=== PATIENT | male | born 1985 | race Caucasian/White ===

== ENCOUNTER 2016-07-26 10:15 | Emergency (ER) | payer OTHER | END 2016-07-26 12:25 | disposition home or self-care (01) | LOC: ER 10:15 | DX: I88.0 Nonspecific mesenteric lymphadenitis (principal); F17.200 Nicotine dependence, unspecified, uncomplicated | CPT/HCPCS: 36415; 96361; 96374; 96375; J1885 ==

== ENCOUNTER 2016-09-30 14:11 | Emergency (ER) | payer OTHER | END 2016-09-30 16:30 | disposition home or self-care (01) | LOC: ER 14:11 | DX: S61.232A Puncture wound without foreign body of right middle finger without damage to nail, initial encounter (principal); Z23 Encounter for immunization; W46.0XXA Contact with hypodermic needle, initial encounter | CPT/HCPCS: 90471; 90744; 96372 ==